=== PATIENT | female | born 1960 | race Caucasian/White ===

== ENCOUNTER 2017-04-01 09:38 | Emergency (ER) | payer MEDICAID ==
[2017-04-01 09:53] VITALS: BP 150/88
[2017-04-01] MEDS ORDERED: DOXYcycline CAP(*) 100 MG PO ONE (10:37)
--- NOTE | 2017-04-01 10:43 | UC ---
Skin Complaint HPI - HPI Summary HPI Summary: Found 2 ticks on abd and L leg 2 days ago after gardening. Has had Lyme before, these bites are itchy and have a faint bruise and "that happened all the other times and I didn't want to wait." Denies fever or new rashes. - History of Current Complaint Hx Obtained From: Patient ?: No Onset/Duration: Gradual Onset, Lasting Days Skin Exposure Onset/Duration: Days Ago Timing: Constant Onset Severity: Mild Current Severity: Mild Location: Discrete Character: Pruritus, Redness Aggravating: Nothing Alleviating: Nothing Associated Signs & Symptoms: Positive: Rash Related History: Insect Bite/Sting <Carol Albarran - Last Filed: 04/01/17 10:47> <Anabelle Eugene - Last Filed: 04/01/17 11:28> - History of Current Complaint Chief Complaint: [facility] Time Seen by Provider: 04/01/17 10:09 Stated Complaint: TICK BITE RASH - Allergy/Home Medications Allergies/Adverse Reactions: Allergies Allergy/AdvReac Type Severity Reaction Status Date / Time No Known Allergies Allergy Verified 04/01/17 10:45 Home Medications: Home Medications Ibuprofen [Advil] 400 mg PO PRN 04/01/17 [History] Review of Systems Constitutional: Negative Skin: Other - tick bites Eyes: Negative ENT: Negative Respiratory: Negative Cardiovascular: Negative Gastrointestinal: Negative Genitourinary: Negative Motor: Negative Neurovascular: Negative Musculoskeletal: Negative Neurological: Negative Psychological: Negative All Other Systems Reviewed And Are Negative: Yes <Carol Albarran - Last Filed: 04/01/17 10:47> PMH/Surg Hx/FS Hx/Imm Hx Endocrine History Of: Denies: Diabetes, Thyroid Disease Cardiovascular History Of: Denies: Cardiac Disorders, Hypertension Respiratory History Of: Denies: COPD, Asthma GI/ History Of: Denies: Ulcer - Surgical History Surgical History: Yes Surgery Procedure, Year, and Place: 2 c-sections, neck fusion - Family History Known Family History: Positive: Cardiac Disease - FATHER PASSED [place] AGE 55, Other - SISTER - LUPUS - Social History Alcohol Use: Occasionally Substance Use Type: None Smoking Status (MU): Light Every Day Tobacco Smoker Type: Cigarettes Amount Used/How Often: 3-4 CIG/DAY Length of Time of Smoking/Using Tobacco: 26+ YEARS <Carol Albarran - Last Filed: 04/01/17 10:47> Physical Exam Triage Information Reviewed: Yes Appearance: Well-Appearing, No Pain Distress, Well-Nourished Vital Signs: Initial Vital Signs Temp 98.4 F 04/01/17 09:45 Pulse 98 04/01/17 09:45 Resp 18 04/01/17 09:45 BP 150/88 04/01/17 09:45 Pulse Ox 98 04/01/17 09:45 Vital Signs Reviewed: Yes Eye Exam: Normal Eyes: Positive: Conjunctiva Clear ENT Exam: Normal ENT: Positive: Normal ENT inspection, Hearing grossly normal, Pharynx normal, TMs normal Dental Exam: Normal Neck exam: Normal Neck: Positive: Supple, Nontender, No Lymphadenopathy Respiratory Exam: Normal Respiratory: Positive: Chest non-tender, Lungs clear, Normal breath sounds, No respiratory distress, No accessory muscle use Cardiovascular Exam: Normal Cardiovascular: Positive: RRR, Pulses Normal Musculoskeletal Exam: Normal Neurological Exam: Normal Neurological: Positive: Alert Psychological Exam: Normal Skin Exam: Other - tick bite sites benign/typical, abd very faint, extravasated blood on L leg, no erythema, drainage, or streaking <Carol Albarran - Last Filed: 04/01/17 10:47> Vital Signs: Initial Vital Signs Temp 98.4 F 04/01/17 09:45 Pulse 98 04/01/17 09:45 Resp 18 04/01/17 09:45 BP 150/88 04/01/17 09:45 Pulse Ox 98 04/01/17 09:45 <Anabelle Eugene - Last Filed: 04/01/17 11:28> Course/Dx - Diagnoses Provider Diagnoses: tick bites <Carol Albarran - Last Filed: 04/01/17 10:47> Discharge <Carol Albarran - Last Filed: 04/01/17 10:47> <Anabelle Eugene - Last Filed: 04/01/17 11:28> - Discharge Plan Condition: Stable Disposition: HOME Patient Education Materials: Tick Bite (ED) Referrals: No Primary Care Phys,NOPCP [Primary Care Provider] - Additional Instructions: TICK BITE: You have been bitten by a tick. Once the tick is removed, these "bites" usually cause no problems. Tick fever, tick paralysis, [place] Spotted fever, and Lyme disease are uncommon -- but you should mention this tick bite to your doctor if you develop unusual symptoms in the next several weeks. If you develop any of the following, please see your physician promptly: (1) Fever, chills, or generalized malaise associated with a headache. (2) A red round area at the site of the bite (or elsewhere) (3) Joint pain, joint swelling or generalized weakness. (4) Redness, swelling, or drainage at the site of the bite. Check yourself, your children and your pets for ticks whenever you've been in an area where ticks live. To remove a tick, grasp it firmly with some tweezers or a string in a slipknot as close to its head as possible and pull it steadily. Ticks do not have a typical "head" attached to their body. There are mouth parts sticking out which they use to feed. If there are mouth parts left behind in the wound there is NO increased risk of Lyme infection; however, the chances of a bacterial skin infection (cellulitis) are higher. If mouth parts remain after tick removal, the best thing to do is apply warm soaks to the area 3-4 times per day to encourage the skin to expel the foreign material. DOXYCYCLINE: Doxycycline (Vibramycin, Doryx) is an antibiotic of the tetracycline family. This type of drug is useful for infections of the respiratory tract and genital tract, and is sometimes used for intestinal infections. Unlike most tetracyclines, doxycycline can be taken with food. It is longer acting, and (usually) less prone to side effects than regular tetracycline. Tetracycline antibiotics can stain immature teeth and SHOULD NOT BE TAKEN BY CHILDREN, NURSING MOTHERS, OR WOMEN. Tetracyclines can make you more prone to sunburn. Abdominal cramping, nausea, and diarrhea are occasional side effects. Women may experience vaginal yeast infections. Call the doctor at once if you develop hives, itching, shortness of breath , or lightheadedness. WHEN A TICK IS NOT ENGORGED AND HAS BEEN ON LESS THAN 24 HOURS - THE RISK FOR LYME IS NEGLIGIBLE. YOU CAN REMOVE THE TICK AND OBSERVE THE AREA ON YOUR OWN. FOLLOW-UP CARE: You should contact your private physician for follow-up care if you develop spreading redness near the site of the bite or on any other areas of the body. If you are unable to get a timely appointment, or if you are worsening, call us or return for re-evaluation. Attestation Statement User Type: Provider - I was available for consult. This patient was seen by the [facility]. The patient was not presented to, seen by, or examined by me. -Ozzy <Anabelle Eugene - Last Filed: 04/01/17 11:28> Addendum entered and electronically signed by Carol Albarran NP 04/01/17 10:48 : UC Addendum Addendum: additional diagnoses: elevated blood pressure due to anxiety
== END 2017-04-01 10:52 | disposition home or self-care (01) ==
LOC: UCEAST 09:38
DX: S80.862A Insect bite (nonvenomous), left lower leg, initial encounter (principal); S30.861A Insect bite (nonvenomous) of abdominal wall, initial encounter; W57.XXXA Bitten or stung by nonvenomous insect and other nonvenomous arthropods, initial encounter; Y93.H2 Activity, gardening and landscaping; F17.210 Nicotine dependence, cigarettes, uncomplicated
CPT/HCPCS: 99212; A9270-GY; G0463

== ENCOUNTER 2017-06-28 08:11 | Emergency (ER) | payer MEDICAID ==
[2017-06-28 08:21] VITALS: BP 150/87
--- NOTE | 2017-06-28 08:23 | UC ---
Throat Pain/Nasal Yariel HPI - History of Current Complaint Chief Complaint: UCGeneralIllness Stated Complaint: THROAT PAIN Time Seen by Provider: 06/28/17 08:22 - Allergies/Home Medications Allergies/Adverse Reactions: Allergies Allergy/AdvReac Type Severity Reaction Status Date / Time No Known Allergies Allergy Verified 06/28/17 08:17 PMH/Surg Hx/FS Hx/Imm Hx - Surgical History Surgical History: Yes Surgery Procedure, Year, and Place: 2 c-sections, neck fusion - Family History Known Family History: Positive: Cardiac Disease - FATHER PASSED [place] AGE 55, Other - SISTER - LUPUS - Social History Alcohol Use: Occasionally Substance Use Type: None Smoking Status (MU): Heavy Every Day Tobacco Smoker Type: Cigarettes Amount Used/How Often: 10-15 CIG/DAY Length of Time of Smoking/Using Tobacco: 26+ YEARS Physical Exam Vital Signs: Initial Vital Signs Temp 36.8 C 06/28/17 08:18 Pulse 77 06/28/17 08:18 Resp 18 06/28/17 08:18 BP 150/87 06/28/17 08:18 Pulse Ox 100 06/28/17 08:18
--- NOTE | 2017-06-28 08:52 | UC ---
Throat Pain/Nasal Yariel HPI - HPI Summary HPI Summary: 56 Y/O female being seen for sore throat lasting approximately a week and a half. Denies fever or chills. Presents today with worsening throat pain and congestion. Denies difficulty swallowing. Discussed smoking cessation with pt and she states that she is interested in quitting. discussed elevated blood pressure and she agrees to be referred to a provider for primary care. Current blood pressure may be a result of current illness and pain. States last blood pressure was "normal". - History of Current Complaint Chief Complaint: UCGeneralIllness Stated Complaint: THROAT PAIN Time Seen by Provider: 06/28/17 08:22 Hx Obtained From: Patient ?: No Onset/Duration: Gradual Onset, Lasting Days Severity: Moderate Pain Intensity: 4 Pain Scale Used: 0-10 Numeric Cough: None Associated Signs & Symptoms: Positive: Hoarseness Related History: Smoking - Epiglottits Risk Factors Epiglottis Risk Factors: Negative - Allergies/Home Medications Allergies/Adverse Reactions: Allergies Allergy/AdvReac Type Severity Reaction Status Date / Time No Known Allergies Allergy Verified 06/28/17 08:17 PMH/Surg Hx/FS Hx/Imm Hx Previously Healthy: Yes - Surgical History Surgical History: Yes Surgery Procedure, Year, and Place: 2 c-sections, neck fusion - Family History Known Family History: Positive: Cardiac Disease - FATHER PASSED [place] AGE 55, Other - SISTER - LUPUS - Social History Alcohol Use: Occasionally Substance Use Type: None Smoking Status (MU): Heavy Every Day Tobacco Smoker Type: Cigarettes Amount Used/How Often: 10-15 CIG/DAY Length of Time of Smoking/Using Tobacco: 26+ YEARS Review of Systems Constitutional: Negative Skin: Negative Eyes: Negative ENT: Ear Ache Respiratory: Negative Cardiovascular: Negative Gastrointestinal: Negative Genitourinary: Negative Motor: Negative Neurovascular: Negative Musculoskeletal: Negative Neurological: Negative Psychological: Negative All Other Systems Reviewed And Are Negative: Yes Physical Exam Triage Information Reviewed: Yes Appearance: Well-Appearing Vital Signs: Initial Vital Signs Temp 98.3 F 06/28/17 08:18 Pulse 77 06/28/17 08:18 Resp 18 06/28/17 08:18 BP 150/87 06/28/17 08:18 Pulse Ox 100 06/28/17 08:18 Vital Signs Reviewed: Yes Eye Exam: Normal Eyes: Positive: Conjunctiva Clear ENT Exam: Other ENT: Positive: Pharyngeal erythema - Mild erythema, TMs normal Neck exam: Normal Neck: Positive: Enlarged Nodes @ - Cervical Respiratory Exam: Normal Respiratory: Positive: Lungs clear Cardiovascular Exam: Normal Cardiovascular: Positive: RRR Abdominal Exam: Normal Abdomen Description: Positive: Nontender Bowel Sounds: Positive: Present Musculoskeletal Exam: Normal Musculoskeletal: Positive: Strength Intact Neurological Exam: Normal Neurological: Positive: Alert Psychological Exam: Normal Skin Exam: Normal Throat Pain/Nasal Course/Dx - Differential Dx/Diagnosis Differential Diagnosis/HQI/PQRI: Pharyngitis, Tonsillitis Provider Diagnoses: Pharyngitis Discharge - Discharge Plan Condition: Stable Disposition: HOME Patient Education Materials: Pharyngitis (ED) Referrals: No Primary Care Phys,NOPCP [Primary Care Provider] - Additional Instructions: Please call [facility] referral line for primary care provider. Tabacco cessation flyer also given, Please follow up and have your blood pressure rechecked. You may take Ibuprofen for throat pain, do not exceed 600mg every 8 hours. You may return to the urgent care as needed if symptoms do not improve or you experience difficulty swallowing fluids or high fevers.
== END 2017-06-28 09:07 | disposition home or self-care (01) ==
LOC: UCEAST 08:11
DX: J02.9 Acute pharyngitis, unspecified (principal); F17.210 Nicotine dependence, cigarettes, uncomplicated
CPT/HCPCS: 87651; 99211; G0463

== ENCOUNTER 2017-10-26 09:50 | Emergency (ER) | payer MEDICAID ==
--- NOTE | 2017-10-26 10:39 | UC ---
Upper Extremity HPI - HPI Summary HPI Summary: NOTICED A LUMP RIGHT ANTERIOR CHEST 2-3 WEEKS AGO. VERY TENDER TO TOUCH. DENIES ANY INJURY OR TRAUMA. NO FEVER. PAIN IS RADIATING INTO AXILLA. - History of Current Complaint Chief Complaint: UCGeneralIllness Stated Complaint: LUMP ON CHEST Time Seen by Provider: 10/26/17 10:18 Hx Obtained From: Patient Onset/Duration: Lasting Weeks, Still Present Severity Initially: Moderate Severity Currently: Moderate Pain Intensity: 4 Pain Scale Used: 0-10 Numeric Character: Sharp Aggravating Factor(s): Other - PALPATION Alleviating Factor(s): Nothing Associated Signs And Symptoms: Negative: Redness, Numbness/Tingling - Allergies/Home Medications Allergies/Adverse Reactions: Allergies Allergy/AdvReac Type Severity Reaction Status Date / Time No Known Allergies Allergy Verified 10/26/17 09:58 PMH/Surg Hx/FS Hx/Imm Hx Previously Healthy: Yes - Surgical History Surgical History: Yes Surgery Procedure, Year, and Place: 2 c-sections, neck fusion - Family History Known Family History: Positive: Cardiac Disease - FATHER PASSED [place] AGE 55, Diabetes, Other - SISTER - LUPUS, MOTHER - STOMACH CANCER - Social History Alcohol Use: Occasionally Substance Use Type: None Smoking Status (MU): Heavy Every Day Tobacco Smoker Type: Cigarettes Amount Used/How Often: 10-15 CIG/DAY Length of Time of Smoking/Using Tobacco: 26+ YEARS Review of Systems Constitutional: Negative Skin: Negative Respiratory: Negative Cardiovascular: Negative Gastrointestinal: Negative Musculoskeletal: Other: - PAINFUL LUMP RIGHT ANTERIOR RIB CAGE All Other Systems Reviewed And Are Negative: Yes Physical Exam Triage Information Reviewed: Yes Appearance: Well-Appearing, No Pain Distress, Well-Nourished Vital Signs: Initial Vital Signs Temp 98.7 F 10/26/17 09:59 Pulse 82 10/26/17 09:59 Resp 16 10/26/17 09:59 BP 150/77 10/26/17 09:59 Pulse Ox 100 10/26/17 09:59 Vital Signs Reviewed: Yes Eyes: Positive: Conjunctiva Clear ENT: Positive: Hearing grossly normal Neck: Positive: Supple Respiratory: Positive: No respiratory distress, No accessory muscle use Cardiovascular: Positive: Pulses Normal Abdomen Description: Positive: Soft Musculoskeletal: Positive: ROM Intact, No Edema, Other: - 4CM TENDER, FIRM NODULE RIGHT ANTERIOR RIBCAGE JUST LATERAL TO STERNUM. TENDERNESS EXTENDS INTO AXILLA. NO AXILLARY LAD Neurological: Positive: Alert Psychological: Positive: Age Appropriate Behavior Skin: Negative: rashes Diagnostics - Radiology CXR Xray Interpretation: No Acute Changes - NO ABNORMALITY NOTED IN THE UNDERLYING MASS OF THE RIGHT UPPER LOBE. EMPHYSEMATOUS CHANGES Radiology Interpretation Completed By: Radiologist Upper Extremity Course/Dx - Differential Dx/Diagnosis Provider Diagnoses: SOFT TISSUE MASS RIGHT ANTERIOR CHEST Discharge - Discharge Plan Condition: Stable Disposition: HOME Patient Education Materials: Soft Tissue Mass (ED) Referrals: No Primary Care Phys,NOPCP [Primary Care Provider] - Additional Instructions: XRAY TODAY SHOWED NO ABNORMALITY NOTED IN THE UNDERLYING MASS OF THE RIGHT UPPER LOBE. ULTRASOUND RECOMMENDED FOR FURTHER EVALUATION. CALL THE NUMBER BELOW FOR ASSISTANCE IN ESTABLISHING WITH A PCP An additional resource available to assist in finding the appropriate physician for your health care needs is the [facility] ([facility]). You may contact them by calling [phone]. GO TO THE ER WITHOUT FAIL IF YOUR SYMPTOMS WORSEN.
--- NOTE | 2017-10-26 11:22 | RAD ---
Indication: Anterior rib cage lump. 2 views of the chest are reviewed. No mediastinal shift is noted. Heart is of normal size and configuration. There is a radiopaque marker in the right upper chest wall. No obvious abnormality is noted. Correlation with ultrasound may be helpful. This can be done as an outpatient. Chronic pleural changes are noted. When compared to previous exam of January 19, 2004 no significant change is noted. IMPRESSION: EMPHYSEMATOUS CHANGES. NO ABNORMALITY IS NOTED IN THE UNDERLYING MASS OF THE RIGHT UPPER LOBE. ULTRASOUND COULD BE PERFORMED FOR FURTHER EVALUATION.
[2017-10-26 11:59] VITALS: BP 139/80
== END 2017-10-26 11:56 | disposition home or self-care (01) ==
LOC: UCEAST 09:50
DX: R22.2 Localized swelling, mass and lump, trunk (principal); F17.210 Nicotine dependence, cigarettes, uncomplicated
CPT/HCPCS: 71020; 99211; G0463

== ENCOUNTER 2020-11-02 09:27 | Inpatient (IN) ==
[2020-11-02] MEDS ORDERED: NS 0.9% 1000 ml BAG 1,000 ML IV.FLUID IV ONE (09:47)
[2020-11-02] MEDS ORDERED: Cefepime 2 GM in NS 0.9% 50 ML 50 ML IVPB ONE (09:47)
[2020-11-02] MEDS ORDERED: Levofloxacin 750 MG IVPREMIX 750 MG/150 ML BAG IVPB ONE (09:47)
[2020-11-02] MEDS ORDERED: Cefepime 2 GM in Dextrose 2 GM/50 ML BAG IV ONE (10:15)
[2020-11-02 10:20] LABS: ABS Lymphocytes 0.5 10^3/ul (1.0-4.8); ABS Monocytes 0.4 10^3/ul (0-0.8); ABS Neutrophils 5.6 10^3/ul (1.5-7.7); Eosinophil % 0.1 %; Hematocrit 22 % (35-47); Hemoglobin 7.5 g/dL (12.0-16.0); Lymphocyte % 7.6 %; Mean Corpuscular HGB Conc 34 g/dL (31-36); Mean Corpuscular Hemoglobin 37 pg (27-31); Mean Corpuscular Volume 107 fL (80-97); Mean Platelet Volume 7.5 fL (7.4-10.4); Platelet Count 253 10^3/uL (150-450); Red Blood Count 2.04 10^6 /uL (3.70-4.87); Red Cell Distribution Width 16 % (10-15); White Blood Count 6.5 10^3/uL (3.5-10.8)
[2020-11-02 10:39] LABS: Influenza A Molecular Negative (Negative); Influenza B Molecular Negative (Negative)
[2020-11-02 10:42] LABS: Troponin I 0.01 ng/mL (<0.03)
[2020-11-02 10:45] LABS: ALT 8 U/L (7-52); Albumin/Globulin Ratio 0.5 (1-3); Alkaline Phosphatase 53 U/L (34-104); BUN/Creatinine Ratio 10.8 (8-20); Blood Urea Nitrogen 10 mg/dL (6-24); C Reactive Protein 191.13 mg/L (<8.01); CO2 Carbon Dioxide 19 mmol/L (22-32); Calcium 8.4 mg/dL (8.6-10.3); Chloride 97 mmol/L (101-111); EGFR African American 74.2 (>60); EGFR Non-African American 61.3 (>60); Globulin 6.3 g/dL (2-4); Glucose 101 mg/dL (70-100); Sodium 128 mmol/L (135-145); Total Protein 9.3 g/dL (6.4-8.9)
[2020-11-02] MEDS ORDERED: Iohexol 350 (CONTRAST) 500 ML MDV IV ONE (10:50)
[2020-11-02 11:01] LABS: Activated Partial Thrombo Time 18.5 seconds (26.0-38.0)
[2020-11-02 11:15] LABS: Anion Gap 12 mmol/L (2-11)
[2020-11-03 06:36] LABS: ABS Eosinophils 0.1 10^3/ul (0-0.6); ABS Lymphocytes 0.6 10^3/ul (1.0-4.8); ABS Monocytes 0.4 10^3/ul (0-0.8); ABS Neutrophils 5.5 10^3/ul (1.5-7.7); Eosinophil % 0.8 %; Hematocrit 27 % (35-47); Hemoglobin 9.4 g/dL (12.0-16.0); Lymphocyte % 9.3 %; Mean Corpuscular HGB Conc 35 g/dL (31-36); Mean Corpuscular Hemoglobin 34 pg (27-31); Mean Corpuscular Volume 96 fL (80-97); Mean Platelet Volume 7.6 fL (7.4-10.4); Platelet Count 199 10^3/uL (150-450); Red Blood Count 2.77 10^6 /uL (3.70-4.87); Red Cell Distribution Width 19 % (10-15); White Blood Count 6.5 10^3/uL (3.5-10.8)
[2020-11-03 06:55] LABS: Albumin 2.4 g/dL (3.2-5.2); Albumin/Globulin Ratio 0.5 (1-3); BUN/Creatinine Ratio 12.3 (8-20); Calcium 7.7 mg/dL (8.6-10.3); EGFR Non-African American 71.9 (>60); Globulin 5.2 g/dL (2-4); Potassium 3.2 mmol/L (3.5-5.0); Total Bilirubin 0.5 mg/dL (0.2-1.0); Total Protein 7.6 g/dL (6.4-8.9)
[2020-11-03] MEDS ORDERED: KCL 20 MEQ/100 ML IVPREMIX 20 MEQ/100 ML BAG IV ONE (07:37)
[2020-11-03] MEDS: Enoxaparin 40 MG/0.4 ML SYR SUBCUT SCH (08:24)
[2020-11-03] MEDS: NS 0.9% 1000 ml BAG 1,000 ML IV SCH (08:27)
[2020-11-03] MEDS: cefTRIAXone 2 GM ADDV.VIAL 2 GM in NS 0.9% 100 ml BAG 100 ML IV SCH (10:37)
[2020-11-04 05:11] LABS: ABS Eosinophils 0.1 10^3/ul (0-0.6); ABS Lymphocytes 0.7 10^3/ul (1.0-4.8); ABS Monocytes 0.5 10^3/ul (0-0.8); ABS Neutrophils 6.2 10^3/ul (1.5-7.7); Eosinophil % 1.8 %; Hematocrit 26 % (35-47); Hemoglobin 9.1 g/dL (12.0-16.0); Lymphocyte % 9.8 %; Mean Corpuscular HGB Conc 35 g/dL (31-36); Mean Corpuscular Hemoglobin 34 pg (27-31); Mean Corpuscular Volume 97 fL (80-97); Mean Platelet Volume 7.5 fL (7.4-10.4); Platelet Count 199 10^3/uL (150-450); Red Blood Count 2.72 10^6 /uL (3.70-4.87); Red Cell Distribution Width 19 % (10-15); White Blood Count 7.6 10^3/uL (3.5-10.8)
[2020-11-04 05:28] LABS: Albumin 2.4 g/dL (3.2-5.2); Albumin/Globulin Ratio 0.5 (1-3); Calcium 7.7 mg/dL (8.6-10.3); EGFR African American 88.2 (>60); EGFR Non-African American 72.9 (>60); Globulin 5.1 g/dL (2-4); Magnesium 1.5 mg/dL (1.9-2.7); Total Bilirubin 0.3 mg/dL (0.2-1.0); Total Protein 7.5 g/dL (6.4-8.9)
[2020-11-04] MEDS: NS 0.9% 1000 ml BAG 1,000 ML IV SCH (06:13)
[2020-11-04] MEDS ORDERED: Magnesium Sulfate 2 gm BAG 2 GM/50 ML BAG IVPB ONE (07:37)
[2020-11-04] MEDS ORDERED: KCL 20 MEQ/100 ML IVPREMIX 20 MEQ/100 ML BAG IV ONE (07:37)
[2020-11-04] MEDS: Enoxaparin 40 MG/0.4 ML SYR SUBCUT SCH (09:42)
[2020-11-04] MEDS: Potassium Chlor 20 meq TAB.ER PO SCH (09:44)
[2020-11-04] MEDS: cefTRIAXone 2 GM ADDV.VIAL 2 GM in NS 0.9% 100 ml BAG 100 ML IV SCH (12:01)
[2020-11-04] MEDS: Albuterol 2.5mg/3 ml (0.083%) NEB.SOLN INH PRN (18:51)
[2020-11-05] MEDS: Albuterol 2.5mg/3 ml (0.083%) NEB.SOLN INH PRN ×4 (00:18→19:47)
[2020-11-05 06:00] LABS: Albumin 2.2 g/dL (3.2-5.2); Albumin/Globulin Ratio 0.5 (1-3); BUN/Creatinine Ratio 11.3 (8-20); Calcium 7.5 mg/dL (8.6-10.3); EGFR African American 101.3 (>60); EGFR Non-African American 83.7 (>60); Globulin 4.8 g/dL (2-4); Magnesium 1.8 mg/dL (1.9-2.7); Potassium 3.1 mmol/L (3.5-5.0); Total Bilirubin 0.2 mg/dL (0.2-1.0)
[2020-11-05] MEDS: NS 0.9% 1000 ml BAG 1,000 ML IV SCH (07:18)
[2020-11-05] MEDS ORDERED: KCL 20 MEQ/100 ML IVPREMIX 20 MEQ/100 ML BAG IV ONE (07:22)
[2020-11-05] MEDS ORDERED: Magnesium Sulfate 2 gm BAG 2 GM/50 ML BAG IVPB ONE (07:22)
[2020-11-05] MEDS: Potassium Chlor 20 meq TAB.ER PO SCH (08:19)
[2020-11-05] MEDS: Enoxaparin 40 MG/0.4 ML SYR SUBCUT SCH (08:19)
[2020-11-05] MEDS ORDERED: Senna TAB 8.6 mg TAB PO PRN (12:21)
[2020-11-05] MEDS: cefTRIAXone 2 GM ADDV.VIAL 2 GM in NS 0.9% 100 ml BAG 100 ML IV SCH (12:40)
[2020-11-05] MEDS: Saline NASAL SPRAY 0.65% BTL BOTH NARES PRN (23:50)
[2020-11-06] MEDS: NS 0.9% 1000 ml BAG 1,000 ML IV SCH (02:43)
[2020-11-06] MEDS: Saline NASAL SPRAY 0.65% BTL BOTH NARES PRN ×3 (05:39→19:38)
[2020-11-06 06:09] LABS: BUN/Creatinine Ratio 9.5 (8-20); Calcium 7.6 mg/dL (8.6-10.3); EGFR African American 116.2 (>60); EGFR Non-African American 96.1 (>60); Magnesium 1.8 mg/dL (1.9-2.7); Potassium 3.9 mmol/L (3.5-5.0)
[2020-11-06] MEDS: Enoxaparin 40 MG/0.4 ML SYR SUBCUT SCH (08:48)
[2020-11-06] MEDS: Potassium Chlor 20 meq TAB.ER PO SCH (08:48)
[2020-11-06] MEDS: cefTRIAXone 2 GM ADDV.VIAL 2 GM in NS 0.9% 100 ml BAG 100 ML IV SCH (10:09)
[2020-11-06] MEDS ORDERED: Magnesium Sulfate IV 3 GM in NS 0.9% 100 ml BAG 100 ML IVPB ONE (10:25)
[2020-11-07] MEDS: NS 0.9% 1000 ml BAG 1,000 ML IV SCH ×2 (01:54→21:54)
[2020-11-07] MEDS: Potassium Chlor 20 meq TAB.ER PO SCH (07:55)
[2020-11-07] MEDS: Enoxaparin 40 MG/0.4 ML SYR SUBCUT SCH (07:55)
[2020-11-07] MEDS: cefTRIAXone 2 GM ADDV.VIAL 2 GM in NS 0.9% 100 ml BAG 100 ML IV SCH (10:16)
[2020-11-08 05:57] LABS: BUN/Creatinine Ratio 14.1 (8-20); Calcium 7.4 mg/dL (8.6-10.3); EGFR African American 114.1 (>60); EGFR Non-African American 94.3 (>60); Magnesium 1.5 mg/dL (1.9-2.7); Potassium 4.1 mmol/L (3.5-5.0)
[2020-11-08] MEDS: Potassium Chlor 20 meq TAB.ER PO SCH (08:20)
[2020-11-08] MEDS: Enoxaparin 40 MG/0.4 ML SYR SUBCUT SCH (08:22)
[2020-11-08] MEDS: cefTRIAXone 2 GM ADDV.VIAL 2 GM in NS 0.9% 100 ml BAG 100 ML IV SCH (10:06)
[2020-11-08] MEDS ORDERED: Magnesium Sulf 4 GM/100 ML IV 4,000 MG/100 ML BAG IVPB ONE (11:00)
[2020-11-08 11:14] VITALS: BP 150/83
[2020-11-08] MEDS: Albuterol 2.5mg/3 ml (0.083%) NEB.SOLN INH PRN (14:19)
== END 2020-11-08 14:50 | disposition home or self-care (01) | DRG 194 ==
LOC: ED 09:27 → MED 14:21 → SSU 11-03 16:16
PROVIDERS: ADMIT Internal Medicine; ATTEND Internal Medicine Hematology & Oncology

== ENCOUNTER 2022-02-22 09:09 | Inpatient (IN) ==
[2022-02-22 10:37] LABS: ABS Lymphocytes 0.8 10^3/ul (1.0-4.8); ABS Neutrophils 8.6 10^3/ul (1.5-7.7); Eosinophil % 0.1 %; Hematocrit 39 % (35-47); Hemoglobin 13.5 g/dL (12.0-16.0); Lymphocyte % 7.6 %; Mean Corpuscular HGB Conc 34 g/dL (31-36); Mean Corpuscular Hemoglobin 32 pg (27-31); Mean Corpuscular Volume 92 fL (80-97); Mean Platelet Volume 8.5 fL (7.4-10.4); Platelet Count 113 10^3/uL (150-450); Red Blood Count 4.26 10^6 /uL (3.70-4.87); Red Cell Distribution Width 13 % (10-15); White Blood Count 10.4 10^3/uL (3.5-10.8)
[2022-02-22 10:51] LABS: Activated Partial Thrombo Time 27.5 seconds (26.0-38.0); INR 1.13 (0.86-1.15)
[2022-02-22 11:00] LABS: Albumin 3.7 g/dL (3.2-5.2); Albumin/Globulin Ratio 2.1 (1-3); Calcium 8.2 mg/dL (8.6-10.3); Globulin 1.8 g/dL (2-4); Potassium 3.9 mmol/L (3.5-5.0); Total Bilirubin 0.3 mg/dL (0.2-1.0); Total Protein 5.5 g/dL (6.4-8.9); eGFR CKD-EPI 103.6 (>60)
[2022-02-22 11:55] LABS: High Sensitivity Troponin 1 Hr 25 pg/mL (<15)
[2022-02-22] MEDS ORDERED: Albuterol HFA INHALER 8 gm MDI INH ONE (12:02)
[2022-02-22] MEDS ORDERED: methylPREDNISolone 125 mg 2 ML VIAL IV ONE (12:21)
[2022-02-22] MEDS ORDERED: cefTRIAXone 1 gm/50 mL D5W 1 GM/50 ML BAG IV ONE (14:23)
[2022-02-22] MEDS ORDERED: Albuterol/Ipratropium NEB.SOL (2.5/0.5 MG) 3 ML NEB.SOLN INH PRN (16:03)
[2022-02-22] MEDS ORDERED: Iohexol 350 (CONTRAST) 500 ML MDV IV ONE (16:03)
[2022-02-22] MEDS ORDERED: Ondansetron ODT 4 mg TAB 4 MG TAB PO PRN (16:04)
[2022-02-22] MEDS: Enoxaparin 40 MG/0.4 ML SYR SUBCUT SCH (16:50)
[2022-02-22] MEDS: methylPREDNISolone 125 mg 2 ML VIAL IV SCH (20:45)
[2022-02-22] MEDS: NS 0.9% 1000 ml BAG 1,000 ML IV SCH (21:06)
[2022-02-23 05:43] LABS: ABS Lymphocytes 0.5 10^3/ul (1.0-4.8); ABS Monocytes 0.2 10^3/ul (0-0.8); Hematocrit 38 % (35-47); Hemoglobin 12.8 g/dL (12.0-16.0); Lymphocyte % 9.2 %; Mean Corpuscular HGB Conc 34 g/dL (31-36); Mean Corpuscular Hemoglobin 31 pg (27-31); Mean Corpuscular Volume 92 fL (80-97); Mean Platelet Volume 8.9 fL (7.4-10.4); Platelet Count 107 10^3/uL (150-450); Red Cell Distribution Width 14 % (10-15); White Blood Count 5.8 10^3/uL (3.5-10.8)
[2022-02-23 06:19] LABS: Albumin 3.3 g/dL (3.2-5.2); Albumin/Globulin Ratio 2.1 (1-3); Calcium 7.8 mg/dL (8.6-10.3); Globulin 1.6 g/dL (2-4); Potassium 4.7 mmol/L (3.5-5.0); Total Bilirubin 0.2 mg/dL (0.2-1.0); Total Protein 4.9 g/dL (6.4-8.9); eGFR CKD-EPI 102.3 (>60)
[2022-02-23] MEDS: methylPREDNISolone 125 mg 2 ML VIAL IV SCH (08:00)
[2022-02-23] MEDS: cefTRIAXone 1 GM Q24H (Pharmacy Admix) IVPB SCH (15:34)
[2022-02-23] MEDS: Enoxaparin 40 MG/0.4 ML SYR SUBCUT SCH (15:34)
[2022-02-23] MEDS: NS 0.9% 1000 ml BAG 1,000 ML IV SCH (16:22)
[2022-02-23] MEDS ORDERED: cefTRIAXone 1 gm/50 mL D5W 1 GM/50 ML BAG IV SCH (16:30)
[2022-02-23] MEDS ORDERED: methylPREDNISolone 125 mg 2 ML VIAL IV SCH (21:00)
[2022-02-23] MEDS ORDERED: methylPREDNISolone SOD 40 mg/ml 1 ml VIAL IV SCH (23:00)
[2022-02-23] MEDS ORDERED: Albuterol HFA INHALER 8 gm MDI INH PRN (23:01)
[2022-02-24 06:30] LABS: ABS Lymphocytes 0.5 10^3/ul (1.0-4.8); ABS Monocytes 0.4 10^3/ul (0-0.8); ABS Neutrophils 7.8 10^3/ul (1.5-7.7); Hematocrit 37 % (35-47); Hemoglobin 12.3 g/dL (12.0-16.0); Lymphocyte % 5.5 %; Mean Corpuscular HGB Conc 34 g/dL (31-36); Mean Corpuscular Hemoglobin 31 pg (27-31); Mean Corpuscular Volume 92 fL (80-97); Mean Platelet Volume 8.7 fL (7.4-10.4); Nucleated Red Blood Cells % 0.2; Platelet Count 104 10^3/uL (150-450); Red Blood Count 3.95 10^6 /uL (3.70-4.87); Red Cell Distribution Width 14 % (10-15); White Blood Count 8.7 10^3/uL (3.5-10.8)
[2022-02-24 06:53] LABS: Calcium 7.9 mg/dL (8.6-10.3); Potassium 4.6 mmol/L (3.5-5.0); eGFR CKD-EPI 103.1 (>60)
[2022-02-24] MEDS: methylPREDNISolone SOD 40 mg/ml 1 ml VIAL IV SCH ×2 (08:20→20:40)
[2022-02-24] MEDS: NS 0.9% 1000 ml BAG 1,000 ML IV SCH (11:16)
[2022-02-24] MEDS: cefTRIAXone 1 GM Q24H (Pharmacy Admix) IVPB SCH (15:59)
[2022-02-24] MEDS: Enoxaparin 40 MG/0.4 ML SYR SUBCUT SCH (16:01)
[2022-02-24] MEDS: Mometasone/Formoter 200/5 MDI INH SCH (18:48)
[2022-02-25] MEDS: Mometasone/Formoter 200/5 MDI INH SCH ×2 (07:13→19:45)
[2022-02-25] MEDS: methylPREDNISolone SOD 40 mg/ml 1 ml VIAL IV SCH ×2 (08:29→21:09)
[2022-02-25 08:54] LABS: ABS Lymphocytes 0.7 10^3/ul (1.0-4.8); ABS Monocytes 0.4 10^3/ul (0-0.8); Hematocrit 40 % (35-47); Hemoglobin 13.4 g/dL (12.0-16.0); Lymphocyte % 10.1 %; Mean Corpuscular HGB Conc 33 g/dL (31-36); Mean Corpuscular Hemoglobin 31 pg (27-31); Mean Corpuscular Volume 92 fL (80-97); Mean Platelet Volume 8.6 fL (7.4-10.4); Platelet Count 121 10^3/uL (150-450); Red Blood Count 4.36 10^6 /uL (3.70-4.87); Red Cell Distribution Width 14 % (10-15); White Blood Count 7.2 10^3/uL (3.5-10.8)
[2022-02-25 09:55] LABS: Calcium 8.3 mg/dL (8.6-10.3); Potassium 4.1 mmol/L (3.5-5.0); eGFR CKD-EPI 99.5 (>60)
[2022-02-25] MEDS: cefTRIAXone 1 GM Q24H (Pharmacy Admix) IVPB SCH (17:20)
[2022-02-25] MEDS: Enoxaparin 40 MG/0.4 ML SYR SUBCUT SCH (18:39)
[2022-02-26 07:15] LABS: ABS Lymphocytes 0.6 10^3/ul (1.0-4.8); ABS Monocytes 0.4 10^3/ul (0-0.8); Hematocrit 36 % (35-47); Hemoglobin 12.1 g/dL (12.0-16.0); Lymphocyte % 9.6 %; Mean Corpuscular HGB Conc 34 g/dL (31-36); Mean Corpuscular Hemoglobin 31 pg (27-31); Mean Corpuscular Volume 93 fL (80-97); Mean Platelet Volume 9.1 fL (7.4-10.4); Platelet Count 101 10^3/uL (150-450); Red Blood Count 3.87 10^6 /uL (3.70-4.87); Red Cell Distribution Width 13 % (10-15)
[2022-02-26 07:28] LABS: Albumin/Globulin Ratio 1.9 (1-3); Calcium 8.1 mg/dL (8.6-10.3); Globulin 1.6 g/dL (2-4); Potassium 4.5 mmol/L (3.5-5.0); Total Bilirubin 0.2 mg/dL (0.2-1.0); Total Protein 4.6 g/dL (6.4-8.9); eGFR CKD-EPI 102.7 (>60)
[2022-02-26] MEDS: Mometasone/Formoter 200/5 MDI INH SCH (07:52)
[2022-02-26] MEDS: methylPREDNISolone SOD 40 mg/ml 1 ml VIAL IV SCH (07:57)
[2022-02-26 11:16] VITALS: BP 130/86
[2022-02-26] MEDS ORDERED: cefTRIAXone 1 GM Q24H (Pharmacy Admix) IVPB SCH (12:00)
== END 2022-02-26 13:30 | disposition home or self-care (01) | DRG 190 ==
LOC: ED 09:09 → EDHOLD 15:59 → MED 19:49
PROVIDERS: ADMIT Nurse Practitioner Family; ATTEND Internal Medicine Hematology & Oncology

== ENCOUNTER 2022-09-09 08:36 | Inpatient (IN) ==
[2022-09-09 09:31] LABS: Hematocrit 36 % (35-47); Mean Corpuscular HGB Conc 34 g/dL (31-36); Mean Corpuscular Hemoglobin 33 pg (27-31); Mean Corpuscular Volume 99 fL (80-97); Mean Platelet Volume 10.2 fL (7.4-10.4); Platelet Count 8 10^3/uL (150-450); Red Blood Count 3.65 10^6 /uL (3.70-4.87); Red Cell Distribution Width 15 % (10-15); White Blood Count 1.3 10^3/uL (3.5-10.8)
[2022-09-09 09:32] LABS: ABS Neutrophils 1.2 10^3/ul (1.5-7.7)
[2022-09-09 09:42] LABS: Potassium 2.8 mmol/L (3.5-5.0)
[2022-09-09 09:48] LABS: Albumin/Globulin Ratio 1.3 (1-3); Globulin 2.4 g/dL (2-4); Total Protein 5.4 g/dL (6.4-8.9); eGFR CKD-EPI 97.7 (>60)
[2022-09-09] MEDS ORDERED: Magnesium Sulf 4 GM/100 ML IV 4,000 MG/100 ML BAG IVPB ONE (10:09)
[2022-09-09 10:30] LABS: ABS Lymphocytes 0.1 10^3/ul (1.0-4.8); Eosinophil % 0.7 %; Lymphocyte % 7.9 %; Nucleated Red Blood Cells % 0.6
[2022-09-09 10:57] LABS: Magnesium 2.3 mg/dL (1.9-2.7)
[2022-09-09] MEDS ORDERED: Ondansetron 4 mg VIAL 2 MG/ML 2 ml VIAL IV PRN (12:05)
[2022-09-09] MEDS ORDERED: Dexamethasone IV 4 MG/ML VIAL 1 ml VIAL IV SLOW PU SCH (13:00)
[2022-09-09 15:28] LABS: Albumin 2.9 g/dL (3.2-5.2); Calcium 6.7 mg/dL (8.6-10.3); Potassium 3.3 mmol/L (3.5-5.0); Total Bilirubin 0.8 mg/dL (0.2-1.0)
[2022-09-09 15:34] LABS: Albumin/Globulin Ratio 1.3 (1-3); Globulin 2.2 g/dL (2-4); Total Protein 5.1 g/dL (6.4-8.9); eGFR CKD-EPI 98.4 (>60)
[2022-09-09 15:40] LABS: Urine Appearance Clear; Urine Bilirubin Negative (Negative); Urine Blood 2+ (Negative); Urine Color Yellow; Urine Glucose Negative (Negative); Urine Ketones Trace (Negative); Urine Nitrite Negative (Negative); Urine Protein Negative (Negative); Urine Urobilinogen Negative (Negative)
[2022-09-09 16:04] LABS: Urine Bacteria Absent (Absent); Urine Red Blood Cell 2+(6-10/hpf) (Absent); Urine Squamous Epithelial Cell Present (Absent); Urine White Blood Cell Trace(0-5/hpf) (Absent)
[2022-09-09] MEDS ORDERED: Albuterol/Ipratropium NEB.SOL (2.5/0.5 MG) 3 ML NEB.SOLN INH SCH (19:00)
[2022-09-09] MEDS ORDERED: Calcium Gluconate 2 GM in NS 0.9% 100 ml BAG 100 ML IV ONE (20:26)
[2022-09-09] MEDS: Dexamethasone IV 40 MG in NS 0.9% 50 ML 50 ML IVPB SCH (21:31)
[2022-09-09 22:36] LABS: Hematocrit 32 % (35-47); Hemoglobin 10.9 g/dL (12.0-16.0); Mean Corpuscular HGB Conc 34 g/dL (31-36); Mean Corpuscular Hemoglobin 34 pg (27-31); Mean Corpuscular Volume 100 fL (80-97); Mean Platelet Volume 10.8 fL (7.4-10.4); Platelet Count 7 10^3/uL (150-450); Red Blood Count 3.24 10^6 /uL (3.70-4.87); Red Cell Distribution Width 15 % (10-15)
[2022-09-09 22:58] LABS: ABS Lymphocytes 0.1 10^3/ul (1.0-4.8); ABS Monocytes 0.1 10^3/ul (0-0.8); ABS Neutrophils 0.7 10^3/ul (1.5-7.7); Eosinophil % 0.8 %; Nucleated Red Blood Cells % 0.1
[2022-09-10] MEDS ORDERED: Albuterol/Ipratropium NEB.SOL (2.5/0.5 MG) 3 ML NEB.SOLN INH PRN (00:50)
[2022-09-10] MEDS: NS 0.9% 1000 ml BAG 1,000 ML IV SCH ×2 (06:08→20:43)
[2022-09-10] MEDS: Dexamethasone IV 40 MG in NS 0.9% 50 ML 50 ML IVPB SCH (08:22)
[2022-09-10 09:03] LABS: Hematocrit 36 % (35-47); Hemoglobin 11.9 g/dL (12.0-16.0); Mean Corpuscular HGB Conc 33 g/dL (31-36); Mean Corpuscular Hemoglobin 33 pg (27-31); Mean Corpuscular Volume 99 fL (80-97); Mean Platelet Volume 9.1 fL (7.4-10.4); Platelet Count 6 10^3/uL (150-450); Red Cell Distribution Width 16 % (10-15); White Blood Count 0.8 10^3/uL (3.5-10.8)
[2022-09-10 09:22] LABS: Albumin 2.9 g/dL (3.2-5.2); Albumin/Globulin Ratio 1.5 (1-3); Calcium 6.9 mg/dL (8.6-10.3); Potassium 3.3 mmol/L (3.5-5.0); Total Bilirubin 0.8 mg/dL (0.2-1.0); Total Protein 4.9 g/dL (6.4-8.9)
[2022-09-10 10:03] LABS: Anisocytosis 1+
[2022-09-10 10:07] LABS: ABS Lymphocytes 0.2 10^3/ul (1.0-4.8); ABS Neutrophils 0.5 10^3/ul (1.5-7.7)
[2022-09-10] MEDS ORDERED: Immune Globulin IV Order (CPOE ENTRY PROTOCOL) IV SCH (12:00)
[2022-09-10] MEDS: Immune Glob 10%-20GM GAMMAGLIQ 40 GM in Premix IV 0 ML IV SCH (12:53)
[2022-09-10 17:15] LABS: ABS Lymphocytes 0.1 10^3/ul (1.0-4.8); ABS Monocytes 0.4 10^3/ul (0-0.8); ABS Neutrophils 1.2 10^3/ul (1.5-7.7); Eosinophil % 0.5 %; Hematocrit 30 % (35-47); Hemoglobin 10.2 g/dL (12.0-16.0); Lymphocyte % 7.5 %; Mean Corpuscular HGB Conc 34 g/dL (31-36); Mean Corpuscular Hemoglobin 34 pg (27-31); Mean Corpuscular Volume 100 fL (80-97); Mean Platelet Volume 10.1 fL (7.4-10.4); Nucleated Red Blood Cells % 0.1; Platelet Count 8 10^3/uL (150-450); Red Blood Count 3.04 10^6 /uL (3.70-4.87); Red Cell Distribution Width 16 % (10-15); White Blood Count 1.7 10^3/uL (3.5-10.8)
[2022-09-10] MEDS ORDERED: Potassium Chlor 20 meq TAB.ER PO ONE (18:50)
[2022-09-11 07:13] LABS: Hematocrit 36 % (35-47); Hemoglobin 12.4 g/dL (12.0-16.0); Mean Corpuscular HGB Conc 34 g/dL (31-36); Mean Corpuscular Hemoglobin 34 pg (27-31); Mean Corpuscular Volume 99 fL (80-97); Mean Platelet Volume 10.6 fL (7.4-10.4); Platelet Count 4 10^3/uL (150-450); Red Blood Count 3.64 10^6 /uL (3.70-4.87); Red Cell Distribution Width 16 % (10-15); White Blood Count 1.5 10^3/uL (3.5-10.8)
[2022-09-11 07:53] LABS: Albumin 2.7 g/dL (3.2-5.2); Albumin/Globulin Ratio 0.8 (1-3); Calcium 6.7 mg/dL (8.6-10.3); Globulin 3.5 g/dL (2-4); Potassium 3.6 mmol/L (3.5-5.0); Total Bilirubin 0.7 mg/dL (0.2-1.0); Total Protein 6.2 g/dL (6.4-8.9); eGFR CKD-EPI 103.6 (>60)
[2022-09-11 08:01] LABS: Phosphorus 1.1 mg/dL (2.5-5.0)
[2022-09-11] MEDS ORDERED: Potassium Phosphate IV 30 MMOLE in NS 0.9% 250 ml 250 ML IVPB ONE (08:03)
[2022-09-11 08:59] LABS: Anisocytosis 1+; Tear Drop Cells 1+
[2022-09-11 09:06] LABS: ABS Lymphocytes 0.2 10^3/ul (1.0-4.8); ABS Neutrophils 1.2 10^3/ul (1.5-7.7)
[2022-09-11] MEDS: Dexamethasone IV 40 MG in NS 0.9% 50 ML 50 ML IVPB SCH (09:15)
[2022-09-11] MEDS ORDERED: Lidocaine 2% PF 5 ML VIAL INJ ONE (09:49)
[2022-09-11] MEDS: Immune Glob 10%-20GM GAMMAGLIQ 40 GM in Premix IV 0 ML IV SCH (13:55)
[2022-09-11 14:07] LABS: Kappa Free Light Chain 13.7 mg/dL
[2022-09-11 16:02] LABS: Immunoglobulin A 14 mg/dL (61 - 356); Immunoglobulin G 532 mg/dL (767 - 1590); Immunoglobulin M 28 mg/dL (37 - 286)
[2022-09-11] MEDS ORDERED: Calcium Gluconate 2 GM in NS 0.9% 100 ml BAG 100 ML IV ONE (17:14)
[2022-09-11] MEDS: NS 0.9% 1000 ml BAG 1,000 ML IV SCH (17:59)
[2022-09-12 06:20] LABS: Hematocrit 27 % (35-47); Hemoglobin 8.9 g/dL (12.0-16.0); Mean Corpuscular HGB Conc 34 g/dL (31-36); Mean Corpuscular Hemoglobin 33 pg (27-31); Mean Corpuscular Volume 99 fL (80-97); Nucleated Red Blood Cells % 0.2; Red Blood Count 2.68 10^6 /uL (3.70-4.87); Red Cell Distribution Width 16 % (10-15); White Blood Count 1.9 10^3/uL (3.5-10.8)
[2022-09-12 06:26] LABS: Calcium 6.8 mg/dL (8.6-10.3); Magnesium 1.7 mg/dL (1.9-2.7); Phosphorus 1.9 mg/dL (2.5-5.0); Potassium 4.5 mmol/L (3.5-5.0); eGFR CKD-EPI 111.2 (>60)
[2022-09-12 06:30] LABS: Mean Platelet Volume 9.9 fL (7.4-10.4); Platelet Count 3 10^3/uL (150-450)
[2022-09-12] MEDS ORDERED: Potassium Phosphate IV 20 MMOLE in NS 0.9% 250 ml 250 ML IVPB ONE (09:00)
[2022-09-12] MEDS: Dexamethasone IV 40 MG in NS 0.9% 50 ML 50 ML IVPB SCH (09:25)
[2022-09-12 09:47] LABS: ABS Lymphocytes 0.2 10^3/ul (1.0-4.8); ABS Monocytes 0.4 10^3/ul (0-0.8); ABS Neutrophils 1.3 10^3/ul (1.5-7.7); Lymphocyte % 11.3 %
[2022-09-12 11:10] LABS: Albumin 2.5 g/dL (3.4-4.7); Albumin/Globulin Ratio 0.96; Gamma Globulin 0.3 g/dL (0.6-1.6); Total Protein(PEP) 5.1 g/dL (6.3 - 7.9)
[2022-09-12 12:19] LABS: Mean Platelet Volume 9.2 fL (7.4-10.4); Platelet Count 11 10^3/uL (150-450)
[2022-09-13 06:06] LABS: Hematocrit 26 % (35-47); Hemoglobin 8.8 g/dL (12.0-16.0); Mean Corpuscular HGB Conc 34 g/dL (31-36); Mean Corpuscular Hemoglobin 33 pg (27-31); Mean Corpuscular Volume 99 fL (80-97); Platelet Count 15 10^3/uL (150-450); Red Blood Count 2.63 10^6 /uL (3.70-4.87); Red Cell Distribution Width 16 % (10-15); White Blood Count 2.6 10^3/uL (3.5-10.8)
[2022-09-13 06:08] LABS: Nucleated Red Blood Cells % 0.3
[2022-09-13 06:24] LABS: Calcium 6.7 mg/dL (8.6-10.3); Potassium 4.6 mmol/L (3.5-5.0); eGFR CKD-EPI 107.6 (>60)
[2022-09-13] MEDS ORDERED: Calcium Gluconate 1 GM/10 ML VIAL (in Pyxis) IV PUSH ONE (07:22)
[2022-09-13 07:23] LABS: ABS Monocytes 0.3 10^3/ul (0-0.8); ABS Neutrophils 1.2 10^3/ul (1.5-7.7); Eosinophil % 0.5 %; Lymphocyte % 39.3 %
[2022-09-13] MEDS ORDERED: CALCIUM GLUCONATE 1GM/50ML NS BAG IV ONE (08:00)
[2022-09-13 08:14] LABS: Magnesium 1.7 mg/dL (1.9-2.7); Phosphorus 2.3 mg/dL (2.5-5.0)
[2022-09-13] MEDS ORDERED: Magnesium Sulfate 2 gm BAG 2 GM/50 ML BAG IVPB ONE (09:56)
[2022-09-13] MEDS ORDERED: Potassium Phosphate IV 15 MMOLE in NS 0.9% 250 ml 250 ML IVPB ONE (09:58)
[2022-09-13] MEDS: Dexamethasone IV 40 MG in NS 0.9% 50 ML 50 ML IVPB SCH (10:57)
[2022-09-13] MEDS ORDERED: NS 0.9% 1000 ml BAG 1,000 ML IV ONE (11:04)
[2022-09-14 06:33] LABS: Hematocrit 25 % (35-47); Hemoglobin 8.2 g/dL (12.0-16.0); Mean Corpuscular HGB Conc 34 g/dL (31-36); Mean Corpuscular Hemoglobin 33 pg (27-31); Mean Corpuscular Volume 99 fL (80-97); Mean Platelet Volume 9.8 fL (7.4-10.4); Platelet Count 6 10^3/uL (150-450); Red Blood Count 2.49 10^6 /uL (3.70-4.87); Red Cell Distribution Width 16 % (10-15); White Blood Count 3.5 10^3/uL (3.5-10.8)
[2022-09-14 07:20] LABS: Albumin 2.3 g/dL (3.2-5.2); Albumin/Globulin Ratio 0.7 (1-3); Globulin 3.1 g/dL (2-4); Magnesium 1.9 mg/dL (1.9-2.7); Potassium 4.4 mmol/L (3.5-5.0); Total Bilirubin 0.7 mg/dL (0.2-1.0); Total Protein 5.4 g/dL (6.4-8.9); eGFR CKD-EPI 108.1 (>60)
[2022-09-14 07:53] LABS: ABS Basophils 0.1 10^3/ul (0-0.2); ABS Lymphocytes 1.9 10^3/ul (1.0-4.8); ABS Monocytes 0.2 10^3/ul (0-0.8); ABS Neutrophils 1.2 10^3/ul (1.5-7.7); Nucleated Red Blood Cells % 0.5
[2022-09-14] MEDS ORDERED: Potassium Acid Phos 500 mg TAB PO SCH (09:00)
[2022-09-14 09:29] LABS: Phosphorus 2.8 mg/dL (2.5-5.0)
[2022-09-14 11:47] VITALS: BP 112/81
[2022-09-20 16:44] LABS: Referral Reason multiple myeloma?; Result Summary Normal
== END 2022-09-14 12:20 | disposition left against medical advice (07) | DRG 809 ==
LOC: CHOA 08:36 → SUATTDRO 15:57 → MEDTELE 15:57 → MED 09-12 00:43
PROVIDERS: ADMIT Internal Medicine Hematology & Oncology; ATTEND Internal Medicine

== ENCOUNTER 2023-12-03 16:54 | Inpatient (IN) ==
[2023-12-03 18:15] LABS: Venous Bicarbonate HCO3 32.6 mmol/L (24-28)
[2023-12-03 18:28] LABS: ABS Lymphocytes 0.3 10^3/uL (1.0-4.8); ABS Monocytes 0.5 10^3/uL (0.0-0.9); ABS Neutrophils 4.8 10^3/uL (1.5-7.6); ABS Nucleated RBC 0.01 10^3/ul; Eosinophil % 0.8 %; Hematocrit 38.4 % (35-45); Hemoglobin 12.8 g/dL (11.5-14.3); Lymphocyte % 5.6 %; Mean Corpuscular Hemoglobin 33.9 pg (27-33); Mean Corpuscular Hgb Conc 33.3 g/dL (31-36); Mean Corpuscular Volume 101.7 fL (80-97); Mean Platelet Volume 8.6 fL (7.5-11.2); Nucleated Red Blood Cells % 0.1 %/100WBC (0.0-0.8); Platelet Count 28 10^3/uL (150-450); Red Blood Count 3.77 10^6/uL (3.63-4.92); Red Cell Distribution Width 13.1 % (12-17); White Blood Count 5.7 10^3/uL (3.8-11.8)
[2023-12-03] MEDS: Albuterol/Ipratropium NEB.SOL (2.5/0.5 MG) 3 ML NEB.SOLN INH SCH (18:30)
[2023-12-03 18:34] LABS: Albumin 3.8 g/dL (3.2-5.2); Albumin/Globulin Ratio 1.4 (1-3); Creatinine, Serum 0.59 mg/dL (0.51-0.95); Globulin 2.8 g/dL (2-4); Magnesium 1.8 mg/dL (1.9-2.7); Potassium 4.7 mmol/L (3.5-5.0); Total Bilirubin 0.4 mg/dL (0.2-1.0); Total Protein 6.6 g/dL (6.4-8.9); eGFR CKD-EPI 100.6 (>60)
[2023-12-03 19:43] LABS: High Sensitivity Troponin 1 Hr 11 pg/mL (<15)
[2023-12-03] MEDS ORDERED: cefTRIAXone 1 gm/50 mL D5W 1 GM/50 ML BAG IV ONE (19:49)
[2023-12-03] MEDS ORDERED: Azithromycin 500 mg/250 ml NS 500 MG/250 ML BAG IVPB ONE (19:49)
[2023-12-03] MEDS ORDERED: Al Hydrox/Mg Hydrox/Simet LIQ 30 ML UDC PO PRN (21:08)
[2023-12-03] MEDS ORDERED: Polyethylene Glycol 3350 17 GM PACKET PO PRN (21:08)
[2023-12-03] MEDS ORDERED: Ondansetron ODT 4 mg TAB 4 MG TAB PO PRN (21:18)
[2023-12-03] MEDS ORDERED: Ondansetron 4 mg VIAL 2 MG/ML 2 ml VIAL IV ONE (21:38)
[2023-12-03] MEDS ORDERED: NS 0.9% 1000 ml BAG 1,000 ML IV SCH (22:15)
[2023-12-03] MEDS ORDERED: Enoxaparin 40 MG/0.4 ML SYR SUBCUT SCH (23:00)
[2023-12-04 02:52] LABS: Urine Appearance Cloudy; Urine Bilirubin Negative (Negative); Urine Blood 1+ (Negative); Urine Color Yellow; Urine Glucose Negative (Negative); Urine Ketones Trace (Negative); Urine Nitrite Negative (Negative); Urine Protein Negative (Negative); Urine Specific Gravity 1.023 (1.002-1.030); Urine Urobilinogen Negative (Negative)
[2023-12-04 03:04] LABS: Urine Bacteria Absent (Absent); Urine Red Blood Cell 2+(6-10/hpf) (Absent); Urine Squamous Epithelial Cell Present (Absent); Urine White Blood Cell Trace(0-5/hpf) (Absent)
[2023-12-04 08:41] LABS: Calcium 7.7 mg/dL (8.6-10.3); Creatinine, Serum 0.54 mg/dL (0.51-0.95); Potassium 4.4 mmol/L (3.5-5.0); eGFR CKD-EPI 102.7 (>60)
[2023-12-04 08:46] LABS: ABS Eosinophils 0.1 10^3/uL (0.0-0.5); ABS Lymphocytes 0.3 10^3/uL (1.0-4.8); ABS Monocytes 0.5 10^3/uL (0.0-0.9); ABS Neutrophils 2.3 10^3/uL (1.5-7.6); ABS Nucleated RBC 0.01 10^3/ul; Eosinophil % 1.7 %; Hematocrit 29.6 % (35-45); Lymphocyte % 8.5 %; Mean Corpuscular Hemoglobin 34.3 pg (27-33); Mean Corpuscular Hgb Conc 33.9 g/dL (31-36); Mean Corpuscular Volume 101.2 fL (80-97); Mean Platelet Volume 8.2 fL (7.5-11.2); Nucleated Red Blood Cells % 0.2 %/100WBC (0.0-0.8); Platelet Count 21 10^3/uL (150-450); Red Blood Count 2.93 10^6/uL (3.63-4.92); Red Cell Distribution Width 13.3 % (12-17)
[2023-12-04] MEDS ORDERED: SPIRIVA Respimat (tiotropium) 2.5 mcg/inh Inhaler INH SCH (09:00)
[2023-12-04] MEDS: Mometasone/Formoter 200/5 MDI INH SCH ×3 (11:10→21:08)
[2023-12-04] MEDS: Magnesium Sulfate IV 1GM/100ML 1 GM/100 ML BAG IV SCH ×2 (12:57→14:33)
[2023-12-04] MEDS ORDERED: cefTRIAXone 1 gm/50 mL D5W 1 GM/50 ML BAG IV SCH (20:00)
[2023-12-04] MEDS ORDERED: Azithromycin 500 mg/250 ml NS 500 MG/250 ML BAG IVPB SCH (21:00)
[2023-12-04] MEDS: cefTRIAXone 1 gm/50 mL D5W 1 GM/50 ML BAG IV SCH (21:13)
[2023-12-04] MEDS: Albuterol 2.5mg/3 ml (0.083%) NEB.SOLN INH PRN (21:24)
[2023-12-04] MEDS: Azithromycin 500 mg/250 ml NS 500 MG/250 ML BAG IVPB SCH (21:52)
[2023-12-05 06:38] LABS: Albumin 3.1 g/dL (3.2-5.2); Albumin/Globulin Ratio 1.4 (1-3); Calcium 8.1 mg/dL (8.6-10.3); Creatinine, Serum 0.57 mg/dL (0.51-0.95); Globulin 2.2 g/dL (2-4); Magnesium 2.1 mg/dL (1.9-2.7); Potassium 4.7 mmol/L (3.5-5.0); Total Bilirubin 0.3 mg/dL (0.2-1.0); Total Protein 5.3 g/dL (6.4-8.9); eGFR CKD-EPI 101.4 (>60)
[2023-12-05] MEDS: Mometasone/Formoter 200/5 MDI INH SCH ×3 (06:53→19:08)
[2023-12-05 07:14] LABS: Hematocrit 30.4 % (35-45); Hemoglobin 10.3 g/dL (11.5-14.3); Mean Corpuscular Hemoglobin 34.5 pg (27-33); Mean Corpuscular Hgb Conc 33.8 g/dL (31-36); Mean Corpuscular Volume 101.9 fL (80-97); Mean Platelet Volume 8.8 fL (7.5-11.2); Platelet Count 19 10^3/uL (150-450); Red Blood Count 2.98 10^6/uL (3.63-4.92); Red Cell Distribution Width 13.1 % (12-17); White Blood Count 3.3 10^3/uL (3.8-11.8)
[2023-12-05] MEDS: Albuterol 2.5mg/3 ml (0.083%) NEB.SOLN INH PRN ×2 (08:45→14:56)
[2023-12-05] MEDS: methylPREDNISolone SOD SUCC 40 mg/ml 1 ml VIAL IV SCH (13:10)
[2023-12-05] MEDS: Albuterol/Ipratropium NEB.SOL (2.5/0.5 MG) 3 ML NEB.SOLN INH SCH (19:06)
[2023-12-05] MEDS: Albuterol 2.5mg/3 ml (0.083%) NEB.SOLN INH SCH (19:07)
[2023-12-05 19:19] LABS: Mean Platelet Volume 8.8 fL (7.5-11.2); Platelet Count 53 10^3/uL (150-450)
[2023-12-05] MEDS: cefTRIAXone 1 gm/50 mL D5W 1 GM/50 ML BAG IV SCH (20:55)
[2023-12-05] MEDS: Azithromycin 500 mg/250 ml NS 500 MG/250 ML BAG IVPB SCH (21:35)
[2023-12-06] MEDS: Albuterol 2.5mg/3 ml (0.083%) NEB.SOLN INH SCH (06:47)
[2023-12-06] MEDS ORDERED: Albuterol HFA INHALER 8 gm MDI INH SCH (07:00)
[2023-12-06 07:03] LABS: Hemoglobin 10.3 g/dL (11.5-14.3); Mean Corpuscular Hemoglobin 34.2 pg (27-33); Mean Corpuscular Hgb Conc 34.2 g/dL (31-36); Mean Corpuscular Volume 100.2 fL (80-97); Mean Platelet Volume 9.7 fL (7.5-11.2); Platelet Count 50 10^3/uL (150-450); Red Cell Distribution Width 13.2 % (12-17); White Blood Count 4.2 10^3/uL (3.8-11.8)
[2023-12-06 07:24] LABS: Albumin 3.4 g/dL (3.2-5.2); Albumin/Globulin Ratio 1.4 (1-3); Calcium 8.1 mg/dL (8.6-10.3); Creatinine, Serum 0.52 mg/dL (0.51-0.95); Globulin 2.4 g/dL (2-4); Potassium 4.8 mmol/L (3.5-5.0); Total Bilirubin 0.3 mg/dL (0.2-1.0); Total Protein 5.8 g/dL (6.4-8.9); eGFR CKD-EPI 103.7 (>60)
[2023-12-06] MEDS: Mometasone/Formoter 200/5 MDI INH SCH ×2 (08:21→19:43)
[2023-12-06] MEDS: methylPREDNISolone SOD SUCC 40 mg/ml 1 ml VIAL IV SCH (09:04)
[2023-12-06] MEDS: Albuterol HFA INHALER 8 gm MDI INH SCH ×2 (12:20→19:43)
[2023-12-06] MEDS: cefTRIAXone 1 gm/50 mL D5W 1 GM/50 ML BAG IV SCH (20:52)
[2023-12-06] MEDS: Azithromycin 500 mg/250 ml NS 500 MG/250 ML BAG IVPB SCH (22:15)
[2023-12-07 05:31] VITALS: BP 107/66
[2023-12-07 07:32] LABS: Albumin 3.1 g/dL (3.2-5.2); Albumin/Globulin Ratio 1.3 (1-3); Calcium 7.7 mg/dL (8.6-10.3); Creatinine, Serum 0.5 mg/dL (0.51-0.95); Globulin 2.3 g/dL (2-4); Magnesium 1.9 mg/dL (1.9-2.7); Potassium 4.2 mmol/L (3.5-5.0); Total Bilirubin 0.2 mg/dL (0.2-1.0); Total Protein 5.4 g/dL (6.4-8.9); eGFR CKD-EPI 104.7 (>60)
[2023-12-07] MEDS: Mometasone/Formoter 200/5 MDI INH SCH (07:33)
[2023-12-07] MEDS: Albuterol HFA INHALER 8 gm MDI INH SCH (07:33)
[2023-12-07 08:56] LABS: Hematocrit 27.5 % (35-45); Hemoglobin 9.4 g/dL (11.5-14.3); Mean Corpuscular Hemoglobin 34.5 pg (27-33); Mean Corpuscular Hgb Conc 34.3 g/dL (31-36); Mean Corpuscular Volume 100.6 fL (80-97); Mean Platelet Volume 9.7 fL (7.5-11.2); Platelet Count 41 10^3/uL (150-450); Red Blood Count 2.74 10^6/uL (3.63-4.92); Red Cell Distribution Width 13.4 % (12-17)
== END 2023-12-07 10:42 | disposition home or self-care (01) | DRG 189 ==
LOC: ED 16:54 → EDHOLD 16:54 → SUATTDRO 21:08 → MED 12-04 11:24 → SUATTDRO 12-05 10:37 → MED 12-06 11:16
PROVIDERS: ADMIT Internal Medicine; ATTEND Internal Medicine

== ENCOUNTER 2024-09-29 14:50 | Inpatient (IN) ==
[2024-09-29 16:04] LABS: Hematocrit 29.3 % (35-45); Hemoglobin 9.8 g/dL (11.5-14.3); Mean Corpuscular Hemoglobin 32.2 pg (27-33); Mean Corpuscular Hgb Conc 33.5 g/dL (31-36); Mean Corpuscular Volume 96.2 fL (80-97); Mean Platelet Volume 9.7 fL (7.5-11.2); Platelet Count 37 10^3/uL (150-450); Red Blood Count 3.04 10^6/uL (3.63-4.92); Red Cell Distribution Width 16.9 % (12-17)
[2024-09-29 16:31] LABS: Albumin 3.4 g/dL (3.2-5.2); Albumin/Globulin Ratio 1.9 (1-3); Calcium 7.5 mg/dL (8.6-10.3); Creatinine, Serum 0.54 mg/dL (0.51-0.95); Globulin 1.8 g/dL (2-4); Potassium 3.9 mmol/L (3.5-5.0); Total Bilirubin 0.8 mg/dL (0.2-1.0); Total Protein 5.2 g/dL (6.4-8.9); eGFR CKD-EPI 102.1 (>60)
[2024-09-29 16:35] LABS: ABS Monocytes 0.2 10^3/uL (0.0-0.9); ABS Neutrophils 2.8 10^3/uL (1.5-7.6); Anisocytosis 1+; Eosinophil % 0.1 %; Giant Platelets Present; Lymphocyte % 1.1 %; Nucleated Red Blood Cells % 0.2 %/100WBC (0.0-0.8); Polychromasia 1+
[2024-09-29] MEDS ORDERED: Cefepime ADVAN 1 GM in NS 0.9% 50 ML 50 ML IVPB SCH (17:00)
[2024-09-29] MEDS: Albuterol/Ipratropium NEB.SOL (2.5/0.5 MG) 3 ML NEB.SOLN INH ONE (17:02)
[2024-09-29] MEDS: Lactated Ringers 1000 ml BAG 1,000 ML IV ONE (17:10)
[2024-09-29] MEDS: Cefepime 1 GM in Dextrose 1 GM/50 ML BAG IV SCH (17:10)
[2024-09-29] MEDS ORDERED: Albuterol/Ipratropium NEB.SOL (2.5/0.5 MG) 3 ML NEB.SOLN INH PRN (21:28)
[2024-09-29] MEDS ORDERED: Ondansetron ODT 4 mg TAB 4 MG TAB PO PRN (21:38)
[2024-09-29] MEDS: Iohexol 350 (CONTRAST) 500 ML MDV IV ONE (21:45)
[2024-09-29] MEDS ORDERED: Albuterol 2.5mg/3 ml (0.083%) NEB.SOLN INH PRN (21:50)
[2024-09-29 22:48] LABS: Magnesium 1.6 mg/dL (1.9-2.7)
[2024-09-29 23:40] LABS: High Sensitivity Troponin 1 Hr 12 pg/mL (<15)
[2024-09-30] MEDS: Magnesium Sulf 4 GM/100 ML IV 4,000 MG/100 ML BAG IVPB ONE (00:16)
[2024-09-30 00:29] LABS: Venous Bicarbonate HCO3 31.8 mmol/L (24-28)
[2024-09-30] MEDS: CEFEPIME 2 GM in Dextrose 50 mL IV SCH (03:44)
[2024-09-30] MEDS ORDERED: Cefepime 1 GM in Dextrose 1 GM/50 ML BAG IV SCH (06:00)
[2024-09-30] MEDS: Mometasone/Formoter 200/5 MDI INH SCH (08:06)
[2024-09-30] MEDS: SPIRIVA Respimat (tiotropium) 2.5 mcg/inh Inhaler INH SCH (08:07)
[2024-09-30 08:43] LABS: ABS Monocytes 0.1 10^3/uL (0.0-0.9); ABS Neutrophils 1.4 10^3/uL (1.5-7.6); Eosinophil % 0.6 %; Hematocrit 26.3 % (35-45); Hemoglobin 8.7 g/dL (11.5-14.3); Lymphocyte % 1.7 %; Mean Corpuscular Hemoglobin 32.4 pg (27-33); Mean Corpuscular Hgb Conc 33.1 g/dL (31-36); Mean Corpuscular Volume 97.7 fL (80-97); Mean Platelet Volume 9.4 fL (7.5-11.2); Nucleated Red Blood Cells % 0.1 %/100WBC (0.0-0.8); Platelet Count 28 10^3/uL (150-450); Red Blood Count 2.69 10^6/uL (3.63-4.92); Red Cell Distribution Width 17.3 % (12-17); White Blood Count 1.6 10^3/uL (3.8-11.8)
[2024-09-30 08:50] LABS: Calcium 6.8 mg/dL (8.6-10.3); Creatinine, Serum 0.4 mg/dL (0.51-0.95); Magnesium 2.6 mg/dL (1.9-2.7); Potassium 3.6 mmol/L (3.5-5.0); eGFR CKD-EPI 109.8 (>60)
[2024-09-30] MEDS: Albuterol/Ipratropium NEB.SOL (2.5/0.5 MG) 3 ML NEB.SOLN INH SCH ×2 (10:19→11:50)
[2024-09-30] MEDS: methylPREDNISolone SOD SUCC 125 mg 2 ML VIAL IV ONE (10:24)
[2024-09-30] MEDS: methylPREDNISolone SOD SUCC 40 mg/ml 1 ml VIAL IV SCH (16:45)
[2024-10-01] MEDS: Potassium Chloride LIQUID 20 MEQ/15 ML LIQUID PO ONE (02:36)
[2024-10-01] MEDS: Albuterol/Ipratropium NEB.SOL (2.5/0.5 MG) 3 ML NEB.SOLN INH SCH (07:02)
[2024-10-01 07:20] LABS: Calcium 7.2 mg/dL (8.6-10.3); Creatinine, Serum 0.39 mg/dL (0.51-0.95); Magnesium 1.9 mg/dL (1.9-2.7); Potassium 4.1 mmol/L (3.5-5.0); eGFR CKD-EPI 110.4 (>60)
[2024-10-01 08:44] LABS: Hematocrit 24.6 % (35-45); Hemoglobin 8.5 g/dL (11.5-14.3); Mean Corpuscular Hemoglobin 32.9 pg (27-33); Mean Corpuscular Hgb Conc 34.6 g/dL (31-36); Mean Corpuscular Volume 95.1 fL (80-97); Red Blood Count 2.59 10^6/uL (3.63-4.92); Red Cell Distribution Width 16.7 % (12-17); White Blood Count 1.7 10^3/uL (3.8-11.8)
[2024-10-01 09:13] LABS: ABS Monocytes 0.1 10^3/uL (0.0-0.9); ABS Neutrophils 1.6 10^3/uL (1.5-7.6); Lymphocyte % 1.2 %; Nucleated Red Blood Cells % 0.1 %/100WBC (0.0-0.8); Platelet Count 23 10^3/uL (150-450); RBC Morphology Normal (Normal)
[2024-10-02 08:21] LABS: Calcium 7.7 mg/dL (8.6-10.3); Creatinine, Serum 0.47 mg/dL (0.51-0.95); Potassium 4.6 mmol/L (3.5-5.0); eGFR CKD-EPI 105.6 (>60)
[2024-10-02 08:24] LABS: Albumin 3.4 g/dL (3.2-5.2); Albumin/Globulin Ratio 1.8 (1-3); Globulin 1.9 g/dL (2-4); Magnesium 1.8 mg/dL (1.9-2.7); Total Bilirubin 0.4 mg/dL (0.2-1.0); Total Protein 5.3 g/dL (6.4-8.9)
[2024-10-02] MEDS: Albuterol/Ipratropium NEB.SOL (2.5/0.5 MG) 3 ML NEB.SOLN INH PRN (08:25)
[2024-10-02 08:52] LABS: Hematocrit 27.2 % (35-45); Hemoglobin 9.3 g/dL (11.5-14.3); Mean Corpuscular Hemoglobin 32.8 pg (27-33); Mean Corpuscular Hgb Conc 34.2 g/dL (31-36); Mean Corpuscular Volume 95.9 fL (80-97); Red Blood Count 2.84 10^6/uL (3.63-4.92); Red Cell Distribution Width 16.9 % (12-17)
[2024-10-02] MEDS: Furosemide 40 mg/4 ml IV VIAL IV SLOW PU ONE (08:52)
[2024-10-02] MEDS: Furosemide 20 mg/2 ml IV VIAL IV SLOW PU ONE (08:57)
[2024-10-02 10:03] LABS: ABS Monocytes 0.1 10^3/uL (0.0-0.9); ABS Neutrophils 2.8 10^3/uL (1.5-7.6); ABS Nucleated RBC 0.01 10^3/ul; Lymphocyte % 1.6 %; Mean Platelet Volume 9.6 fL (7.5-11.2); Nucleated Red Blood Cells % 0.5 %/100WBC (0.0-0.8); Platelet Count 21 10^3/uL (150-450); RBC Morphology Normal (Normal)
[2024-10-02] MEDS ORDERED: Sulfur Hexaflouride MICROSPHR 25 MG VIAL IV PRN (16:08)
[2024-10-02 16:42] LABS: TSH Ultra Thyroid Stim Horm 0.69 mcIU/mL (0.34-5.60)
[2024-10-02] MEDS: Morphine ORAL CONCENTRATE 5 MG/0.25 ML ORAL.SYRIN SL ONE (18:14)
[2024-10-02 20:16] LABS: PCO2 Arterial 59 mmHg (35-45); PO2 Arterial 92 mmHg (80-100)
[2024-10-03] MEDS: Morphine ORAL CONCENTRATE 5 MG/0.25 ML ORAL.SYRIN SL ONE ×3 (00:39→23:19)
[2024-10-03 08:27] LABS: INR 1.23 (0.85-1.14)
[2024-10-03 08:33] LABS: Hematocrit 23.8 % (35-45); Mean Corpuscular Hemoglobin 32.3 pg (27-33); Mean Corpuscular Hgb Conc 33.5 g/dL (31-36); Mean Corpuscular Volume 96.6 fL (80-97); Mean Platelet Volume 9.9 fL (7.5-11.2); Platelet Count 9 10^3/uL (150-450); Red Blood Count 2.47 10^6/uL (3.63-4.92); Red Cell Distribution Width 17.3 % (12-17); White Blood Count 1.3 10^3/uL (3.8-11.8)
[2024-10-03 08:37] LABS: Calcium 7.5 mg/dL (8.6-10.3); Creatinine, Serum 0.49 mg/dL (0.51-0.95); Potassium 4.3 mmol/L (3.5-5.0); eGFR CKD-EPI 104.5 (>60)
[2024-10-03 09:08] LABS: Albumin 3.1 g/dL (3.2-5.2); Albumin/Globulin Ratio 1.6 (1-3); Globulin 1.9 g/dL (2-4); Magnesium 1.9 mg/dL (1.9-2.7); Total Bilirubin 0.5 mg/dL (0.2-1.0)
[2024-10-03 09:30] LABS: ABS Lymphocytes 0.1 10^3/uL (1.0-4.8); ABS Monocytes 0.1 10^3/uL (0.0-0.9); ABS Neutrophils 1.1 10^3/uL (1.5-7.6); ABS Nucleated RBC 0.02 10^3/ul; Anisocytosis 1+; Eosinophil % 0.2 %; Giant Platelets Present; Nucleated Red Blood Cells % 1.7 %/100WBC (0.0-0.8)
[2024-10-03 10:53] LABS: Hepatitis B Surface Antigen Nonreactive (Nonreactive)
[2024-10-03 10:58] LABS: Hepatitis A Ab IgM Negative (Negative)
[2024-10-03 10:59] LABS: Hepatitis B Core IgM Nonreactive (Nonreactive)
[2024-10-03 11:11] LABS: Hepatitis C Antibody Negative (Negative)
[2024-10-03] MEDS: Piperacillin/Tazobac 3.375 BAG 3.375 GM/100 ML BAG IV ONE (16:54)
[2024-10-03] MEDS ORDERED: Zosyn per Pharmacy NOTE FOLLOW UP SCH (17:00)
[2024-10-03] MEDS: methylPREDNISolone SOD SUCC 40 mg/ml 1 ml VIAL IV SCH (21:59)
[2024-10-03 22:21] LABS: PCO2 Arterial 46 mmHg (35-45)
[2024-10-03] MEDS: Furosemide 40 mg/4 ml IV VIAL IV SLOW PU ONE (22:25)
[2024-10-03 22:27] LABS: PO2 Arterial 56 mmHg (80-100)
[2024-10-03] MEDS: ZOSYN 3.375 GM Q8H per EXTENDED INFUSION IV SCH (22:35)
[2024-10-03 22:40] LABS: INR 1.71 (0.85-1.14)
[2024-10-03 23:15] LABS: Albumin 3.1 g/dL (3.2-5.2); Albumin/Globulin Ratio 1.8 (1-3); Alkaline Phosphatase 131 U/L (35-149); Anion Gap 3 mmol/L (2-16); Blood Urea Nitrogen 30 mg/dL (6-24); CO2 Carbon Dioxide 39 mmol/L (22-32); Calcium 7.3 mg/dL (8.6-10.3); Chloride 95 mmol/L (101-111); Creatinine, Serum 0.63 mg/dL (0.51-0.95); Globulin 1.7 g/dL (2-4); Glucose 128 mg/dL (70-100); Sodium 137 mmol/L (135-145); Total Bilirubin 1.6 mg/dL (0.2-1.0); Total Protein 4.8 g/dL (6.4-8.9); eGFR CKD-EPI 98.4 (>60)
[2024-10-03 23:44] LABS: Platelet Count 10 10^3/uL (150-450)
[2024-10-03 23:46] LABS: Mean Platelet Volume 9.6 fL (7.5-11.2)
[2024-10-03 23:47] LABS: ALT 4008 U/L (7-52)
[2024-10-03 23:48] LABS: Hematocrit 30.7 % (35-45); Hemoglobin 10.4 g/dL (11.5-14.3); Mean Corpuscular Hemoglobin 31.6 pg (27-33); Mean Corpuscular Hgb Conc 33.8 g/dL (31-36); Mean Corpuscular Volume 93.6 fL (80-97); Red Blood Count 3.28 10^6/uL (3.63-4.92); Red Cell Distribution Width 16.3 % (12-17)
[2024-10-04 00:14] LABS: Potassium Redraw 4.2 mmol/L (3.5-5.0)
[2024-10-04 02:05] LABS: ABS Lymphocytes 0.1 10^3/uL (1.0-4.8); ABS Neutrophils 1.1 10^3/uL (1.5-7.6); ABS Nucleated RBC 0.19 10^3/ul; Anisocytosis 2+; Eosinophil % 0.8 %; Lymphocyte % 6.7 %; Mean Platelet Volume 8.8 fL (7.5-11.2); Platelet Count 11 10^3/uL (150-450); White Blood Count 1.2 10^3/uL (3.8-11.8)
[2024-10-04 02:42] LABS: PCO2 Arterial 47 mmHg (35-45); PO2 Arterial 66 mmHg (80-100)
[2024-10-04 03:09] LABS: Creatine Kinase 74 U/L (10-223)
[2024-10-04 07:05] LABS: ALT 7047 U/L (7-52); Albumin 2.8 g/dL (3.2-5.2); Albumin/Globulin Ratio 1.8 (1-3); Alkaline Phosphatase 222 U/L (35-149); Blood Urea Nitrogen 42 mg/dL (6-24); CO2 Carbon Dioxide 43 mmol/L (22-32); Calcium 6.8 mg/dL (8.6-10.3); Chloride 93 mmol/L (101-111); Creatinine, Serum 0.86 mg/dL (0.51-0.95); Globulin 1.6 g/dL (2-4); Glucose 168 mg/dL (70-100); Magnesium 1.9 mg/dL (1.9-2.7); Sodium 136 mmol/L (135-145); Total Bilirubin 2.9 mg/dL (0.2-1.0); Total Protein 4.4 g/dL (6.4-8.9); eGFR CKD-EPI 74.9 (>60)
[2024-10-04 07:13] LABS: Hematocrit 23.2 % (35-45); Mean Corpuscular Hemoglobin 32.3 pg (27-33); Mean Corpuscular Hgb Conc 34.4 g/dL (31-36); Mean Corpuscular Volume 93.8 fL (80-97); Mean Platelet Volume 9.9 fL (7.5-11.2); Platelet Count 9 10^3/uL (150-450); Red Blood Count 2.48 10^6/uL (3.63-4.92); Red Cell Distribution Width 17.1 % (12-17); White Blood Count 1.8 10^3/uL (3.8-11.8)
[2024-10-04 08:39] LABS: ABS Lymphocytes 0.1 10^3/uL (1.0-4.8); ABS Monocytes 0.1 10^3/uL (0.0-0.9); ABS Neutrophils 1.6 10^3/uL (1.5-7.6); Eosinophil % 1.3 %; Lymphocyte % 5.7 %; Nucleated Red Blood Cells % 17.3 %/100WBC (0.0-0.8); RBC Morphology Normal (Normal)
[2024-10-04] MEDS: Norepinephrine 4 MG/250mL D5W 4,000 MCG/250 ML BAG IV SCH (09:25)
[2024-10-04] MEDS: Phenylephrine 40 mcg/mL 10mL (400mcg) SYRINGE ONE (09:30)
[2024-10-04] MEDS ORDERED: Lorazepam PYXIS KEY PRN (09:55)
[2024-10-04] MEDS ORDERED: Ondansetron 4 mg VIAL 2 MG/ML 2 ml VIAL IV PRN (09:57)
[2024-10-04] MEDS: Morphine 2 MG/ML SYRINGE IV PRN (10:04)
[2024-10-04] MEDS: LORazepam 2 mg VIAL 1 ml IV PUSH PRN (10:04)
[2024-10-04] MEDS: Succinylcholine 200 mg VIAL 20 mg/ml 10 ml VIAL (200 mg) ONE (10:21)
[2024-10-04] MEDS: Morphine 2 MG/ML SYRINGE ONE (10:21)
[2024-10-04] MEDS: Rocuronium 50 mg VIAL 10 mg/ml 5 ml VIAL (50 mg) ONE (10:21)
[2024-10-04] MEDS: LORazepam 2 mg VIAL 1 ml ONE (10:22)
[2024-10-04 11:35] VITALS: BP 105/72
[2024-10-04] MEDS: Norepinephrine 4 MG/250mL D5W 4,000 MCG/250 ML BAG IV ONE (12:02)
[2024-10-05 13:50] LABS: Cytomegalovirus IgG Antibody Negative (Negative)
[2024-10-05 23:14] LABS: EBV Capsid Ag IgG Ab Positive (Negative); EBV Capsid Ag IgM Ab Negative (Negative); Epstein-Barr Nuclear Antigen Negative (Negative)
[2024-10-06 14:12] LABS: Anaplasma phagocytophilum Negative (Negative); B. miyamotoi PCR, B Negative (Negative); Babesia divergens/MO-1 Negative (Negative); Babesia ducani Negative (Negative); Ehrlichia chaffeensis Negative (Negative); Ehrlichia ewingii/canis Negative (Negative); Ehrlichia muris eauclairensis Negative (Negative)
[2024-10-08 15:03] LABS: IgG Immunoblot Negative (Negative); IgM Immunoblot Negative (Negative)
== END 2024-10-04 11:22 | disposition expired | DRG 871 ==
LOC: ED 14:50 → SUATTDRO 19:41 → EDHOLD 19:41 → MED 21:34 → ICU 10-04 07:51
PROVIDERS: ADMIT Internal Medicine; ATTEND Student in an Organized Health Care Education/Training Program